=== PATIENT | female | born 1990 | race Caucasian/White ===

== ENCOUNTER 2017-11-27 20:48 | Emergency (ER) | payer OTHER, BC ==
[2017-11-27] MEDS: LORAZEPAM 1 MG TAB PO (22:05)
== END 2017-11-27 22:53 | disposition home or self-care (01) ==
LOC: FTE 20:48
DX: F43.20 Adjustment disorder, unspecified (principal); J45.901 Unspecified asthma with (acute) exacerbation
CPT/HCPCS: 99283